=== PATIENT | female | born 1950 | race Two or more races ===

== ENCOUNTER 2019-05-15 20:28 | Emergency (ER) | payer MEDICARE, MEDICAID ==
[~2019-05-15] VITALS: Ht 165.1 cm; Wt 90.7 kg
--- NOTE | 2019-05-15 20:28 | NUR ---
ED Nurse Note: Patient brought in by ambulance with complaints of pain in the left leg, patient normally ambulates with assistance of a walker but has been in a chair for sevral days.
--- NOTE | 2019-05-15 21:08 | Emergency Room Report ---
History of Present Illness General Chief Complaint: Lower Extremity Injury Source: Patient Present Illness [facility] This is a 69-year-old female with history of diabetes high blood pressure. She presents with chief complaint of left knee pain. No trauma. This been ongoing for the last 2 days. Unable to get up and walk. Pain is 10 out of 10. Localized to the lateral aspect of the knee and the popliteal fossa. Before that she was moving things around the house and cleaning up. She says she was on her knees a lot. She is also been down to do some puzzle. Afterward she cannot get up. She is been sitting the chair because of the pain. No fever chills but no nausea no vomiting. Denies any other complaint. Allergies: Coded Allergies: CODEINE (Verified Allergy, Unknown, 05/15/19) Patient History Past Medical History: see triage record, old chart reviewed, DM, HTN Past Surgical History: other Pertinent Family History: none Social History: Denies: smoking Last Menstrual Period: na Now: No Immunizations: other Reviewed Nursing Documentation: PMH: Agreed; PSxH: Agreed Nursing Documentation-PMH Past Medical History: No History, Except For Hx Cardiac Problems: Yes - hypercholesterol Hx Hypertension: Yes Hx Diabetes: Yes Review of Systems Eye: Denies: eye pain, blurred vision ENT: Denies: ear pain, nose congestion, throat swelling Respiratory: Denies: cough, shortness of breath Cardiovascular: Denies: chest pain, palpitations Gastrointestinal: Denies: abdominal pain, diarrhea, nausea, vomiting Musculoskeletal: Reports: joint pain; Denies: back pain Skin: Denies: rash Neurological: Denies: headache, numbness Endocrine: Denies: increased thirst, increased urine Hematologic/Lymphatic: Denies: easy bruising All Other Systems: negative except mentioned in HPI Physical Exam Vital Signs Date Time Temp Pulse Resp B/P (MAP) Pulse Ox O2 Delivery O2 Flow Rate FiO2 05/15/19 20:23 97.9 81 16 121/70 (87) 98 Room Air Vitals normal Sp02 EP Interpretation: reviewed, normal General Appearance: well appearing, no apparent distress, alert Head: normocephalic, atraumatic Eyes: bilateral eye PERRL, bilateral eye EOMI ENT: hearing grossly normal, normal pharynx Neck: full range of motion, supple, no meningismus Respiratory: chest non-tender, lungs clear, normal breath sounds Cardiovascular #1: regular rate, rhythm, no murmur Gastrointestinal: normal bowel sounds, non tender, no mass, no organomegaly, no bruit, non-distended Musculoskeletal: back normal, other - Left knee: She has effusion and tenderness to the lateral aspect the knee. Tender to palpation. Decreased range of motion secondary to pain. There is warmth to the touch. No redness. Pulses normal. Psychiatric: mood/affect normal Procedures Additional Procedure Procedure Narrative Procedure: Arthrocentesis Indication: Pain, rule out septic joint Description: Under sterile condition, local anesthetic of 1% lidocaine without epinephrine. I did a lateral approach. Using 18-gauge needle I aspirate the joint and removed about 50 cc of cloudy yellowish thick viscous fluid. Patient tolerated procedure of any problem. No complication. Medical Decision Making Diagnostic Impression: Primary Impression: Inflammation of joint of left knee ER Course This patient presents with left knee pain. Synovial fluid is cloudy. WBC is greater than 30 thousand. Gram stain showed WBC but no organism. This points toward an inflammatory process rather than infectious process. Patient pain is well controlled. Better movement after fluid aspiration. Will discharge home. Other X-Ray Diagnostic Results Other X-Ray Diagnostic Results : X-Ray ordered: Left knee x-rays # of Views/Limited Vs Complete: 3 View Indication: Pain EP Interpretation: Yes Interpretation: no dislocation, no soft tissue swelling, no fractures, other - Small effusion, degenerative changes Impression: Other - small effusion Electronically Signed by: Hunter Garcia MD Last Vital Signs Date Time Temp Pulse Resp B/P (MAP) Pulse Ox O2 Delivery O2 Flow Rate FiO2 05/15/19 20:23 97.9 81 16 121/70 (87) 98 Room Air Status: improved Disposition: HOME, SELF-CARE Condition: Stable Scripts Ibuprofen* (MOTRIN*) 600 Mg Tablet 600 MG ORAL THREE TIMES A DAY, #30 TAB 0 Refills Prov: Hunter Garcia MD 05/16/19 Hydrocodone/Acetaminophen 5-325* (HYDROCODONE/ACETAMINOPHEN 5-325*) 1 Each Tablet 1 TAB ORAL Q6H PRN for For Pain, #15 TAB 0 Refills Prov: Hunter Garcia MD 05/16/19 Additional Instructions: Elevate knee. Use crutches. Follow-up with your doctor in 2 3 days for recheck. Return if symptoms worsen. Hunter Garcia MD May 15, 2019 21:08
[2019-05-15] MEDS ORDERED: Morphine Sulfate 4mg/ml Inj (IV USE ONLY) IVP ONE (21:15)
[2019-05-15] MEDS ORDERED: Ketorolac 30mg Inj IV ONE (21:15)
--- NOTE | 2019-05-15 21:26 | NUR ---
ED Nurse Note: Blood collected then sent.
--- NOTE | 2019-05-15 21:41 | NUR ---
ED Nurse Note: vp information technology at the bed side for xray.
[2019-05-15 21:46] LABS: BASOPHILS % (AUTO) 1.5 % (0.0-2.0); EOSINOPHILS % (AUTO) 1.1 % (0.0-3.0); HEMATOCRIT 43.5 % (37.0-47.0); HEMOGLOBIN 14.1 G/DL (12.0-16.0); LYMPHOCYTES % (AUTO) 21.4 % (20.0-45.0); MEAN CORPUSCULAR VOLUME 74 FL (80-99); MONOCYTES % (AUTO) 9.5 % (1.0-10.0); NEUTROPHILS % (AUTO) 66.6 % (45.0-75.0); PLATELET COUNT 297 K/UL (150-450); RED BLOOD COUNT 5.87 M/UL (4.20-5.40); RED CELL DISTRIBUTION WIDTH 13.1 % (11.6-14.8); WHITE BLOOD COUNT 9.9 K/UL (4.8-10.8)
[2019-05-15 21:53] LABS: ANION GAP 9 mmol/L (5-15); BLOOD UREA NITROGEN 18 mg/dL (7-18); CALCIUM 9.9 MG/DL (8.5-10.1); CARBON DIOXIDE 27 MMOL/L (21-32); CHLORIDE 97 MMOL/L (98-107); CREATININE 0.9 MG/DL (0.55-1.30); POTASSIUM 3.7 MMOL/L (3.5-5.1); SODIUM 133 MMOL/L (136-145)
[2019-05-15] MEDS ORDERED: Lidocaine 1% Plain 30 ml INJ ONE ×2 (22:38→22:45)
--- NOTE | 2019-05-15 22:45 | NUR ---
ED Nurse Note: Dr Garcia at the bed side for left knee aspiration. Consent signed by patient.
--- NOTE | 2019-05-15 22:59 | NUR ---
HAND-OFF: Report given to Olga CORBIN.
[2019-05-15 23:34] VITALS: BP 128/74
--- NOTE | 2019-05-15 23:35 | NUR ---
ER Nurse Note: Pt calm, cooperative, no signs of distress. Awaiting lab results. Pt bedrest. Family at bedside. Will continue to montior.
[2019-05-16] MEDS ORDERED: Piperacillin/Tazobactam 3.375 GM in NS 110 ML IVPB ONE (00:45)
[2019-05-16] MEDS ORDERED: Vancomycin 1.5gm/NS Premix 275 ML IVPB SCH (00:45)
[2019-05-16] MEDS ORDERED: HYDROCODON-ACE1 EA15 ORAL (01:12)
[2019-05-16] MEDS ORDERED: IBUPROFEN600 MG ORAL (01:12)
--- NOTE | 2019-05-16 01:12 | NUR ---
ER Nurse Note: Per ERMD, vanco will be discontinued. Pt is receiving zoysn; tolerating well. Pt a&ox4, stable, pain under control. technical support coordinator applying UNRULY bandage and crutch teaching. Sandwitch and water given. Will continue to montior.
[2019-05-16 02:00] VITALS: BP 132/78
--- NOTE | 2019-05-16 02:00 | NUR ---
ER Nurse Note: Pt seen, treated, medically cleared for discharge by ERMD. Discharge instuctions and prescriptions given with repeat verbalization by pt. Emphasized to follow up with primay care provider. All orders completed per ERMD orders. Pt a&ox4, VSS, no signs of distress. ID band removed. IV removed; site clean and bandaged. Crutch teaching provided and UNRULY bandage applied. All questions answered per pt's questions. Pt left with all belongings, left with own transportation. Pt was wheelchaired to car.
--- NOTE | 2019-05-16 10:14 | Diagnostic Imaging Report ---
Indication: Left knee pain Technique: 3 views of the left knee Comparison: None Findings: There is suggestion of a suprapatellar effusion. No acute fractures. No dislocations. The joint spaces are preserved. There are small patellar osteophytes. Impression: No evidence of joint effusion. No definite acute bony trauma
== END 2019-05-16 02:00 | disposition home or self-care (01) ==
LOC: EDBD 20:28 → EMR 22:00 → CANBEDREQ 05-16 02:02
DX: M25.462 Effusion, left knee (principal); E78.00 Pure hypercholesterolemia, unspecified; I10 Essential (primary) hypertension; E11.9 Type 2 diabetes mellitus without complications; Z88.6 Allergy status to analgesic agent
CPT/HCPCS: 20610; 36415; 73562; 80048; 82945; 84157; 85025; 85651; 86140; 87070; 87205; 89051; 89060; 96361; 96365; 96375; 96376; 99284; J1885; J2001; J2270; J2405; J2543; J3370